=== PATIENT | female | born 1935 | race Caucasian/White ===

== ENCOUNTER 2020-10-14 17:44 | Inpatient (IN) | payer OTHER ==
[~2020-10-14] VITALS: Ht 162.6 cm; Wt 49.2 kg
[2020-10-14 21:39] VITALS: BP 131/94
--- NOTE | 2020-10-15 05:26 | NUR ---
START OF SHIFT RECEIVED REPORT FROM OFFGOING RN. LATER RECEIVED REPORT FROM ED RN YON. PT DPOA MADIHA PERSAUD CONTACTED [facility] AND CONSENTS RECEIVED, DPSUNIL WAS WORRIED BECAUSE HER MOTHER REPORTED NOT TAKING HER MEDICATION FROM [facility] AND SHE HAD THEN POCKETED. [id number] PT ARRIVED ON UNIT, PT AAOX4, VS B/P 131/94, P 69, T 98.3, R 17, 02 SAT 96% RA RR EVEN AND NONLABORED ON RA. PT LUNGS CLEAR, HT RR, ABD ACTIVE, SOFT. PT REPORTS THAT STAFF AND RESIDENTS ARE DOING DRUGS AND SHE THINKS THEY ARE GOING TO HARM HER, THEN PT SWITCHES TO SHE KNOWS ABOUT [employer] IT GREW ON HER FARM, SHE THOUGHT IT WAS A PRETTY PLANT. PT THEN REORTED SHE DID NOT TAKE HER MEDICATION FROM [facility] AND HANDED TWO PILLS OVER, PILLS WASTED. PT CONTINUE TO TALKED ABOUT THAT SHE KNOWS THAT STAFF AT [facility] AND SOME RESIDENT'S ARE OUT TO GET HER. PT PRESENTS PARANOIA BUT CALM AND COOPERATIVE. PT SKIN W/D, BRUISING ON UE AND PT REPORTED THAT THE EMT, WAS HOLDING ME DOWN, I WAS WANTING TO GET AWAY BECAUSE I THOUGHT I WAS GOING BACK TO [facility]. OF NOTE, HCP Aileen LOCKETT, TALIA CONTACTED. ZERO S/S OF STEVIE VIERA NOTED, T WILL CONTINUE TO BE MONITOR PER [facility] PROTOCOL.
[2020-10-15 08:48] LABS: CHOLESTEROL 144 mg/dL (<200); HDL CHOLESTEROL 42 mg/dL (>40); LDL CHOLESTEROL 72 mg/dL (<100); SERUM ASSESSMENT Clear; TC:HDL 3.4 Ratio (Not establshd); TRIGLYCERIDE 154 mg/dL (<150); VLDL 31 mg/dL (<40)
--- NOTE | 2020-10-15 18:02 | NUR ---
0700 ASSUMED CARE OF PATIENT, PATIENT IN BED AT THAT TIME. PATIENT AMB WITH WALKER WITH STEADY GAIT AND STANDBY ASSIST. NO C/O PAIN. NEEDS ENCOURAGEMENT TO EAT MEALS STATING "NOT HUNGRY". PATIENT ATE MEALS WITHOUT ASSISTANCE. NO AGGRESSION/CONBATIVENESS NOTED. MEDS TAKEN WHOLE WITHOUT DIFFICULTY. DENIES SI/HI. LS CLEAR, BS ACTIVE. VS- 159/64, 60, 17, 97.6, 97%
--- NOTE | 2020-10-15 18:11 | NUR ---
ADOLPH was able to speak with the Pt's DPOA Shalonda Higgins concerning the Pt's admissions. Shalonda informed that she was looking for a new placement for the Pt closer to the [place] area. Shalonda stated she did not want the Pt to return to [facility]. ADOLPH encouraged Shalonda to reach out to for assistance with facilitating a move. Also if Shalonda is unable to locate a placement prior to d/c Pt would need to return to [facility]. Shalonda stated she had a few facilities she has been looking at. Also that she has not given notive to [facility] at this time. ADOLPH emailed welcome packet to [email or web address]
[2020-10-15 20:01] VITALS: BP 150/60
[2020-10-15 23:06] LABS: GLYCOHEMOGLOBIN (HGB A1C) 6.7 % (4.8-5.6)
--- NOTE | 2020-10-16 05:21 | NUR ---
10-15-20 CARE TRANSFERRED 1899 OBSERVED PT SITTING IN DINING ROOM EATING. LATER PT AAOX4, VSS, RR EVEN AND NONLABORED ON RA. PT DENIES SI/HI AND PAIN. DURING MEDICATION ADMIN PT CHEECKING MEDICATION, THEN OBSERVED HER SPIT BACK INTO HAND, ENCOURAGED PT TO TAKE MEDICATION AND PT COMPLIED, STAYED WITH PT AND PT REPORTED THAT SHE WAS VERY SAD BECAUSE HER DAUGHTER HAD PASSED RECENTLY. LATER PT BED WAS ADJUSTED FOR COMFORT, LOWEST POSITION, LOCKED AND ALARM ON. PT WILL CONTINUE TO BE MONITOR PER [facility] PROTOCOL.
[2020-10-16 05:45] LABS: INR 2.17; PROTIME 22.8 Seconds (10.5-12.1)
[2020-10-16 10:13] VITALS: BP 154/60
--- NOTE | 2020-10-16 11:13 | NUR ---
Alert and orientated to person, place and situation. Denies SI/HI. Was able to state month and year but not the day. Ambulates with walker with regular, steady gait. Breath sounds clear. Reg HR auscultated. Color pink with brisk capillary refill and palpable peripheral pulses. Brief dry. Active bowel sounds over soft, flat abdomen. States she had BM last night. Skin dry. Scratching upper arms with fingernails d/t dryness, clotrimazole cream applied. Currently visiting with visitors in day room. No s/o distress.
--- NOTE | 2020-10-16 12:50 | NUR ---
New admit to [facility] with aggressive behavior/combative. Medical hx includes CKD, CAD, CVA, B12 deficiency. Visit during lunch, pt on regular diet and demonstrating good appetite. Able to voice food preferences. Reports usual wt 108-110 lb, and current wt is 114 lb/ On B12 replacement. Low nutrition risk.
[2020-10-16 15:50] VITALS: BP 107/52
[2020-10-16 19:34] VITALS: BP 144/57
--- NOTE | 2020-10-17 03:55 | NUR ---
10-16-20 CARE TRANSFERRED 1899 OBSERVED PT SITTING IN DAY ROOM. LATER PT AAOX4, VSS, RR EVEN AND NONLABORED ON RA. PT DENIES SI/HI AND PAIN. PT PRESENTS CALM AND COOPEATIVE. DURING MEDICATION ADMISION PT RELUCTANT BUT REVIEW OF EACH MEDICATION AND PT COMPLIED. PT PRESENTS PARANOID AND REPORTS THAT "PEOPLE ARE STEALING MY BRIEF'S, HERE JUST LIKE [facility]" WHEN EXPLAINING THAT THE BRIEF'S SHE IS WEARING ARE HOSPITAL ISSUED AND WILL GET HER ANOTHER PAIR. LATER PT TOLD ME THAT SHE DID HAVE ANY BRIEF'S, SHOWING PT WERE THE BRIEF'S WERE, SHE STATED "WELL, THERE WHERE NOT THERE A MINUTE AGO". PT WILL CONTINUE TO BE MONITOR PER [facility] PROTOCOL.
[2020-10-17 09:32] LABS: INR 2.05; PROTIME 21.6 Seconds (10.5-12.1)
[2020-10-17 10:22] VITALS: BP 124/53
--- NOTE | 2020-10-17 13:16 | NUR ---
Assumed patient care at 0700, patient sitting in day room, calm and cooperative, alert and oriented x4, ate meal, take medication whole, ambulate with walker, lungs clear, bs active, vss, patient is able to verbalized need, attend groups, denies hi/si, will continue to monitor patient.
--- NOTE | 2020-10-17 18:15 | NUR ---
A referral was faxed to [facility] per the DPOA's request. A video assessment with for the Pt is cheduled for 07/21/2020 @ 11am via zoom
[2020-10-17 19:10] VITALS: BP 148/63
--- NOTE | 2020-10-17 22:16 | NUR ---
ASSUMED PATIENT CARE AT 1900, PATIENT LYING IN BED. AMBULATES WITH WALKER, STEADY GAIT. A&OX4, DENIES ANY PAIN/SI/HI/AVH. NO S/S OF DISTRESS OR DISCOMFORT. PATIENT BRIEF DRY, STANDBY ASSIST TO TOILET WITHOUT DIFFICULTY. CONTINENT OF URINE. TOOK MEDS ONE AT A TIME, NO DIFFICULTY NOTED. NO CHEEKING OBSERVED. C/O BEING COLD, PROVIDED MULTIPLE BLANKETS, PATIENT APPRECIATIVE. WILL MONITOR.
[2020-10-18 08:00] VITALS: BP 162/67
[2020-10-18 09:26] LABS: INR 2.1
--- NOTE | 2020-10-18 13:38 | NUR ---
ASSUMED PATIENT CARE 0700, SITTING IN THE DAY ROOM CALM AND COOPERATIVE, ALERT AND ORIENTED X4, VSS, TOOK MEDICATION WHOLE. AMB WITH WALKER, LUNGS CLEAR, BS ACTIVE, GRAND DAUGHTER CALLED FOR UPDATE, ATTEND GROUPS AND PATICIPATED PATIENT DENIES SI/HI. WILL CONTINUE TO MONITOR
[2020-10-18 19:21] VITALS: BP 109/45
[2020-10-18 21:52] VITALS: BP 119/45
--- NOTE | 2020-10-18 22:18 | NUR ---
PATIENT CARE RESUMED AT 1900, SITTING IN DINING ROOM INTERACTING WITH A PEER AT THAT TIME. TOOK MEDS WHOLE WITHOUT DIFFICULTY. C/O CHRONIC KNEE PAIN OF 6/10, DECLINED OFFER OF ACETAMINOPHEN. PATIENT LATER WENT TO ROOM TO GO TO BED, BEGAN CALLING OUT FOR HELP. PATIENT FOUND STANDING IN ROOM WITH WALKER AND CALLING OUT FOR HELP. STATED SHE WAS HAVING 10/10 RIGHT GROIN PAIN, DESCRIBED STABBING AND "LIKE IT FELT WHEN I HAD THAT BLOOD CLOT". ASSESSED GROIN AREA, NOTED SOME ABDOMINAL BRUISING FROM INJECTIONS AND DID NOT FIND ANY REDNESS OR HEAT IN GROIN AREA. VS 119/45, 49HR, 20 RR, 97.7T, 98% ON ROOM AIR. NOTIFIED HOSPITALIST WHO ADVISED TO TREAT PAIN WITH ACETAMINOPHEN WHICH PATIENT REFUSED. HOSPITALIST CAME TO SEE PATIENT, PATIENT NOW HAS FALLEN ASLEEP AND IS RESTING WITH EYES CLOSED AND IS QUIETLY SNORING. WILL MONITOR.
[2020-10-19 06:14] LABS: INR 2.03; PROTIME 21.4 Seconds (10.5-12.1)
[2020-10-19 08:59] VITALS: BP 118/56
[2020-10-19 09:39] VITALS: BP 118/56
--- NOTE | 2020-10-19 12:05 | NUR ---
PATIENT CARE ASSUMED AT 0700 - ATE BREAKFAST - 50 PERCENT COMPLETION. QUESTIONED ON PAIN DISCOMFORT DENIED BUT THEN ADVISED DIFFERENTLY. OFFERED TYLENOL BUT REFUSED. STATED WAS NOT EFFECTIVE WHEN TAKEN. EXPLAINED THAT IS WHY SHE REFUSED NIGHT BEFORE WELL. PATIENT TOOK MEDICATIONS - ONE PILL AT A TIME. STATED SELPT WELL WHEN ASSESSED. HEART RATE STRONG AND STEADY, SKIN INTACT AND LUNGS CLEAR ON AUSCULTATION. ABLE TO MANUVER AROUND WITH WALKER - UNSTEADY AND NEEDS MONITORING - ALERT AND ORIENTED X 4. WILL CONTINUE TO MONITOR PATIENT FOR SAFETY AND ADDRESS ANY CONCERNS ACCORDINGLY.
[2020-10-19 19:40] VITALS: BP 110/36
--- NOTE | 2020-10-20 03:26 | NUR ---
PATIENT HAS BEEN IN HER ROOM ALL NIGHT. SHE IS A/0X4. SHE AMBULATES WITH A WALKER. SHE DENIES PAIN. DENIES SI/HI/AVH. SHE HAS BEEN PLEASANT AND COOPERATIVE. PATIENT HAS BEEN ASSISTED TO THE RESTROOM X 3 TONIGHT. SHE IS CONTINENT FOR THE MOST PART BUT IS NOT ALWAYS ABLE TO HOLD HER URINE TILL SHE GETS TO THE TOILET. PATIENT TOOK HER MEDS WHOLE WITH WATER. ROUTINE ROUNDS TO ASSESS STATUS AND SAFETY OF PATIENT. BED IN LOW POSITION AND BED ALARM IS ON.
[2020-10-20 05:50] LABS: INR 1.98; PROTIME 20.9 Seconds (10.5-12.1)
[2020-10-20 08:52] VITALS: BP 127/56
[2020-10-20 10:06] VITALS: BP 127/56
--- NOTE | 2020-10-20 14:26 | NUR ---
Assumed pt care at 0700. Pt was in her room awake. ALERT AND ORIENTED TO PERSON, PLACE, SITUATION. Denies si/hi/. Denies pain at this time. No sign of acute distress noted upon assessments. Calm and cooperative with care. Ambulates with a walker. pt has a slow gait with ambulation. Took meds whole, no difficulty noted. Paticipated in activities.. At this time pt is in the day room. will continue to monitor.
--- NOTE | 2020-10-20 17:08 | NUR ---
WILLIAM recieved a call from Shalonda concerning placement. Shalonda informed they have moved all of the Pt's belongs out of [facility] and are continuing to look for a placment for the Pt. WILLIAM informed the Pt may be discharged this and stressed the importance of Pt having a placment prior to discharge. Shalonda requested a referral be sent to the [facility] assisted living and Memory care and [facility]. William did send referrals as requested. WILLIAM will continue to follow
[2020-10-20 19:51] VITALS: BP 130/44
--- NOTE | 2020-10-20 21:40 | NUR ---
PATIENT CARE ASSUMED AT 1900. NO S/S OF DISTRESS OR DISCOMFORT. C/O ROOM DOOR BEING LOCKED, ROOM UNLOCKED FOR PATIENT. PATIENT DENIES SI/HI/AVH/PAIN. NO C/O ANXIETY, DEPRESSION. SPOKE TO DAUGHTER WHO EXPRESSED CONCERN THAT PATIENT'S PARANOIA WAS BEING TREATED, BUT NOT SPECIFICALLY HER ANXIETY. DAUGHTER IS BHARATH MADIHA PERSAUD AND STATES THE PRIORITY SHOULD BE ON THE PATIENT'S ANXIETY. WISHES TO SPEAK TO THE DOCTOR OR MANAGER ANALYTICAL TOMORROW SHE HAD BEEN EXPECTING A CALL FROM THE TODAY. DAUGHTER STATES THE PATIENT HAS BEEN ACCEPTED TO [facility] IN [place], [place], AND EITHER SHE (MADIHA) OR HER SISTER WOULD BE TRANSPORTING THE PATIENT TO THE NEW FACILITY WHEN SHE IS DISCHARGED FROM [facility]. DAUGHTER ALSO STATED THAT THE PATIENT'S YOUNGEST SISTER LAST TUESDAY, AND THE PATIENT DOES NOT KNOW YET. MADIHA STATES HER MOTHER IS CARRYING A HEAVY LOAD AFTER THE LOSS OF HER , DAUGHTER, AND NOW YOUNGEST SISTER. MADIHA IS GOING TO DETERMINE THE BEST WAY TO TELL THE PATIENT ABOUT THE SISTER'S PASSING. PATIENT AMBULATES WITH A WALKER WITH A SLOW STEADY GAIT. ON Q12 MINUTE SAFETY CHECKS.
--- NOTE | 2020-10-21 08:14 | NUR ---
RT Progress Note- Tiffany has been present in the milieu each day since her admission. She also has been present in each recreation therapy group. After goal of group is explained to Tiffany, she appears bright in affect and is able to remain focus and contribute. She has not expressed paranoia or appeared overly anxious if given instructions and oriented to situation. RT team will continue to encourage participation and progress towards goals.
[2020-10-21 09:33] VITALS: BP 143/50
--- NOTE | 2020-10-21 10:48 | NUR ---
PATIENT CARE ASSUMED AT 0700 - SLEEPING WHEN ARRIVING ON UNIT. PATIENT LATER AROSE FOR BREAKFAST. STATED HAD GOOD NIGHT SLEEP. NO PAIN WHEN ASSESSED - WAS IRRITATED HAVING TO TAKE MEDICATIONS AT BREAKFAST. ADVISED WAS APPROPRIATE TO TAKE WITH FOOD - GIVEN IM OF B12 AND TOLERATED WELL. DENIED S/I RATED DEPRESSION AND ANXIETY AT 5/10 WELL. EAGER TO BE DISCHARGED. ATE WELL 50 PERCENT OF BREAKFAST. MANUVERS AROUND WITH WALKER - STEADY BUT NEEDS MONITORING. SAT IN DINING GARCIA DURING MORNING GROUP BUT DID NOT PARTICIPATE JUST OBSERVED. WILL CONTINUE TO MONITOR PATIENT FOR SAFETY AND ANY FURTHER CONCERNS AN ADDRESS ACCORDINGLY.
--- NOTE | 2020-10-21 15:53 | NUR ---
ADOLPH spoke with Shalonda ugalde placement. Shalonda informed Pt was accepted at [place] and that she will be moving Pt property in today. Shalonda stated her sister Sonja will pick the Pt up and transport to [place]. Shalonda stated she would call ADOLPH back with the pharmacy picking technician time. D/C set for 10/23/2020 @ 10am to [place] at [facility]. Family will tranpsort the Pt.
[2020-10-21 19:49] VITALS: BP 107/36
--- NOTE | 2020-10-21 21:43 | NUR ---
PATIENT CARE RESUMED AT 1900. PATIENT LYING IN BED AT THAT TIME. TOOK MEDS WHOLE WITHOUT DIFFICULTY. REPORTS HEADACHE PAIN 01/04, DECLINED OFFER OF TYLENOL. LOOKING FORWARD TO DISCHARGING LATER THIS WEEK. NO S/S OF DISTRESS OR DISCOMFORT. AMBULATES WITH WALKER, SLOW STEADY GAIT. Q12 MIN SAFETY CHECKS.
[2020-10-22 07:04] LABS: INR 2.14; PROTIME 22.5 Seconds (10.5-12.1)
[2020-10-22 09:22] VITALS: BP 127/55
--- NOTE | 2020-10-22 12:05 | NUR ---
PATIENT WAS IN ROOM DOING AM ADL WHEN CARE ASSUMED, SHE AMBULATES TO THE DAYROOM WITH ASSIST OF WALKER, GAIT SLIGHTLY UNSTEADY. PATIENT TOOK ALL MEDICATION WHOLE WITHOUT DIFFICULTY, SHE IS EATING MEALS, AND DRINKING FLUID WELL. PATIENT DENIES SUICIDAL/HOMICIDAL IDEATION. SHE STATES DEPRESSION IS "JUST A LITTLE". PATIENT DENIES ANXIETY, DENIES HAVING PHYSICAL PAIN AT THIS TIME. PATIENT PARTICIPATES IN GROUP THERPAY. MOOD IS EUTHYMIC, AFFACT IS DEPRESSED. NO SIGN OF ACUTE DISTRESS NOTED AT THIS TIME, WILL MONITOR FOR SAFETY.
[2020-10-22 20:16] VITALS: BP 115/45
[2020-10-23 09:29] VITALS: BP 133/60
--- NOTE | 2020-10-23 09:36 | NUR ---
Nutrition follow up: Remains on [facility]. Possbile discharge today? Continues with good intakes at meals no c/o chewing/swallowing issues on regular diet. Weight 108#, WNL for UBW. Will continue to follow weights and intakes during stay. Remains low nutrition risk.
[2020-10-23] MEDS ORDERED: JANTOVEN2 MG PO (09:52)
[2020-10-23] MEDS ORDERED: ZETIA10 MG PO (09:53)
[2020-10-23] MEDS ORDERED: LIPITOR40 MG PO (09:53)
[2020-10-23] MEDS ORDERED: PROPRANOLOL 20M20 M1 PO (09:54)
[2020-10-23] MEDS ORDERED: COZAAR100 MG PO (09:55)
[2020-10-23] MEDS ORDERED: BAYER CHEWABLE81 MG PO (09:55)
[2020-10-23] MEDS ORDERED: NORVASC10 MG PO (09:55)
[2020-10-23] MEDS ORDERED: SEROQUEL 50 MG50 MG PO (09:56)
[2020-10-23] MEDS ORDERED: FLONASE 0.05%50 MCG NASAL (09:56)
[2020-10-23] MEDS ORDERED: MIRALAX17 GM PO (09:56)
[2020-10-23] MEDS ORDERED: OXYBUTYNIN 5 MG5 M1 PO (09:57)
[2020-10-23] MEDS ORDERED: CYANOCOBAL1000 MCG/1 IM (09:57)
--- NOTE | 2020-10-23 11:09 | NUR ---
ADOLPH faxed the discharge documents to [facility]. the fax cover sheet and confirmation page was placed in the Pt's chart.
--- NOTE | 2020-10-23 11:30 | NUR ---
Alert and orientated X3-4. Denies SI/HI. States, "I want to go home." Calm, cooperative and compliant. Filled out pt satisfaction form independently. Ambulates with walker with slow, steady gait. Breath sounds clear. Reg HR auscultated. Color pink with brisk capillary refill and palpable peripheral pulses. Independent with voiding. States she had BM yesterday. Active bowel sounds over soft, flat abdomen. Report called to [place] to Janee Martinez, discharge instructions including med list faxed per request. Spoke with Shalonda Higgins DPOA, agrees with transfer, medicare forms signed. Discharge instructions given to madalyn Casillas. Discharged per WC to Sonja with Izabella escorting her to Sonja's truck. No s/o distress.
--- NOTE | 2020-10-25 23:00 | D ---
[facility] [place] [address] DISCHARGE SUMMARY Name: IRA CHAPMAN Room #: 525B-B [facility] IN M.R.#: [id number] Admission: 10/14/20 Attend Phys: Eve Oro MD Discharge: 10/23/20 Date of : 39 Report #: [id number] THIS REPORT FOR: cc: FAM - No family physician/PCP FAM - No family physician/PCP Karthik Paulino DO ~ DATE OF SERVICE: 10/23/2020 INPATIENT PSYCHIATRIC DISCHARGE SUMMARY ATTENDING PSYCHIATRIST: Karthik Paulino DO CHILDREN'S AUTHOR: Salty Shepherd M.D. DISCHARGE DIAGNOSIS: Unspecified psychosis, resolved. Medical comorbidities are as follows: CKD stage III, hypertension, hyperlipidemia, atrial fibrillation, rate controlled, on Coumadin therapy with therapeutic INR of 2.1 on 4 mg a day. History of DVT, PE, history of stroke. The patient is discharging to a new placement, assisted living facility, it is [place] [facility]. She was transported there by her granddaughter, Sonja. Psychiatric medical care to be provided by receiving facility. The patient does use a walker for ambulation. ACTIVITY LEVEL: As tolerated. The patient requires 24-hour assistance due to her medical problems. diet: regular MEDICATIONS: Warfarin 4 mg oral daily at 1800 for atrial fibrillation and history of thromboembolic phenomenon, Zetia 10 mg oral daily at 0900 for hypertriglyceridemia, atorvastatin 40 mg oral at bedtime for hyperlipidemia, propranolol 10 mg oral 3 times a day for subjective akathisia, amlodipine 10 mg oral daily for hypertension. Recommend holding for systolic blood pressure less than 100, losartan 100 mg oral daily for renal protection, aspirin 81 mg oral daily for heart protection, Seroquel 50 mg oral 3 times a day for psychosis, Flonase 1 spray each nostril daily at 0900, MiraLax 17 g oral daily p.r.n. constipation, oxybutynin 5 mg oral daily at bedtime for urinary incontinence. Also, it should be noted, cyanocobalamin 1000 mcg oral daily at 0900 what was intended, but on discharge instructions it is intramuscular daily. Significant laboratories this admission: Hematology: White count 6.2, H and H 12.9 and 38.6, platelet count 216. Last INR 2.14, last PT 22.5 on 10/22/2020. Chemistries from 10/22/2020, sodium 134, potassium 4.9, chloride 101, BUN 28, creatinine 1.7, estimated GFR 29, glucose 130. Hemoglobin A1c 6.7, calcium 8.8, total bilirubin 0.3, AST 21, ALT 17, alkaline phosphatase 74, albumin 3.2. [address] [address] DISCHARGE SUMMARY Name: IRA CHAPMAN [facility] Room #: 525B-B [facility] IN M.R.#: [id number] Admission: 10/14/20 Attend Phys: Eve Oro MD Discharge: 10/23/20 Date of : 39 Report #: [id number] Triglycerides 154, cholesterol 144, LDL 72, HDL 42. COVID-19 King test is negative. REASON FOR ADMISSION: Back on 10/14/2020, an 85-year-old female of [facility] for extreme agitation, paranoia. Apparently, she was taken to the hospital, found to have a CVA. She was treated there and then was sent to our facility for further care. She reported symptomatology of feeling sad after the of her and adult daughter relatively close in the past year, feeling alone at times. HOSPITAL COURSE: Admitted to the geriatric psychiatry unit, initially cared for by Dr. Oro. The patient was started on Seroquel. Her mood improved. Affect was constricted at times. Her daughter who we have been in contact with, Beryl requested placement elsewhere than [facility] ([facility]) where she had been, family was unhappy with [facility] and family members in [facility]. By the day of discharge, the patient was not suicidal or homicidal. PHYSICAL EXAMINATION: VITAL SIGNS: Temperature 36.8, pulse 66, respirations 17, BP 132/60, O2 sat 100%. GENERAL: Unkempt appearance, seated in chair. MENTAL STATUS EXAMINATION: A well-developed, age-appearing female. Attention fair. Concentration limited. Speech, soft volume, normal rate. Thought process: Linear and goal directed. mood/affect- congruent constricted Thought content, relative poverty of thought. Denied SI, HI. Denied auditory or visual type hallucinations. Memory not formally tested. Insight limited. Judgment limited. Fund of knowledge, no greater than average. Prognosis for this patient is guarded due to her medical comorbidities. <ELECTRONICALLY SIGNED> By: Karthik Paulino DO 10/25/202299 150 57 Karthik Paulino DO /nt
== END 2020-10-23 11:17 | DRG 884 ==
LOC: SBH
PROVIDERS: Nurse Practitioner Family; Psychiatry & Neurology Psychiatry; ADMIT Psychiatry & Neurology Psychiatry; ATTEND Psychiatry & Neurology Psychiatry
DX: F03.91 Unspecified dementia, unspecified severity, with behavioral disturbance (principal); N18.30 Chronic kidney disease, stage 3 unspecified; I12.9 Hypertensive chronic kidney disease with stage 1 through stage 4 chronic kidney disease, or unspecified chronic kidney disease; E78.5 Hyperlipidemia, unspecified; I48.91 Unspecified atrial fibrillation; E78.1 Pure hyperglyceridemia; I25.10 Atherosclerotic heart disease of native coronary artery without angina pectoris; Z79.01 Long term (current) use of anticoagulants; Z86.718 Personal history of other venous thrombosis and embolism; Z86.711 Personal history of pulmonary embolism; Z79.82 Long term (current) use of aspirin; Z79.899 Other long term (current) drug therapy; Z86.73 Personal history of transient ischemic attack (TIA), and cerebral infarction without residual deficits; Z91.040 Latex allergy status; Z91.048 Other nonmedicinal substance allergy status; Z95.1 Presence of aortocoronary bypass graft
CPT/HCPCS: 10880

== ENCOUNTER 2020-10-14 18:55 | Emergency (ER) | payer OTHER ==
[~2020-10-14] VITALS: Ht 147.3 cm; Wt 49.0 kg
[2020-10-14 19:09] VITALS: BP 130/62
[2020-10-14 19:59] LABS: ABSOLUTE NEUTROPHILS 2.9 thou/uL (1.4-8.2); BASOPHILS 0.5 % (0.0-2.0); EOSINOPHILS 5.8 % (0.0-3.0); HEMATOCRIT 38.6 % (37.0-47.0); HEMOGLOBIN 12.9 gm/dL (12.0-15.0); LYMPHOCYTES 33.8 % (24.0-44.0); MCH 33.9 pg (26.0-34.0); MCHC 33.5 g/dL (28.0-37.0); MCV 101.3 fL (80.0-100.0); MONOCYTES 13.8 % (1.0-8.0); PLATELET COUNT 216 thou/uL (150-400); POLYS 46.1 % (36.0-66.0); RBC 3.81 mil/uL (4.20-5.00); RDW 13.2 % (10.5-14.5); WBC 6.2 thou/uL (4.0-11.0)
[2020-10-14 20:07] LABS: CALCIUM 8.8 mg/dL (8.5-10.1); CREATININE 1.7 mg/dL (0.6-1.0); POTASSIUM 4.9 mmol/L (3.5-5.1)
[2020-10-14 20:13] LABS: ALBUMIN 3.2 g/dL (3.4-5.0); TOTAL BILIRUBIN 0.3 mg/dL (0.2-1.0); TOTAL PROTEIN 6.8 g/dL (6.4-8.2)
[2020-10-14 20:49] LABS: INR 2.66; PROTIME 27.7 Seconds (10.5-12.1)
== END 2020-10-14 21:34 | disposition still patient (30) ==
LOC: ER 18:55
PROVIDERS: Physician Assistant
DX: R45.1 Restlessness and agitation (principal); F91.1 Conduct disorder, childhood-onset type; I25.10 Atherosclerotic heart disease of native coronary artery without angina pectoris; Z20.822 Contact with and (suspected) exposure to COVID-19; Z91.040 Latex allergy status